=== PATIENT | male | born 1960 | race Caucasian/White ===

== ENCOUNTER 2024-10-08 18:19 | Emergency (ER) | payer OTHER, SELFPAY ==
[2024-10-08 18:20] VITALS: BP 163/96
[2024-10-08 18:52] LABS: Hematocrit 39.5 % (39.0-52.0); Hemoglobin 13.4 g/dL (13.0-18.0); Mean Corp Hgb Conc. 33.9 g/dL (33.0-37.0); Mean Corpuscular Volume 91.2 fL (80.0-94.0); Nucleated Red Blood Cells % 0 % (-); Platelet Count 264 10^3/uL (130-400); Red Cell Dist. Width 12.5 % (11.5-14.5)
--- NOTE | 2024-10-08 19:24 | ED.GENMED ---
History of Present Illness
General
Chief Complaint: Skin Problem
Source: patient
Exam Limitations: none
Time Seen by Provider: 10/08/24 18:25
Nursing documentation reviewed up to this point in time: agreed with
History of Present Illness
History of Present Illness:
64-year-old male presenting to the emergency department today with concerns of right lower extremity swelling discomfort over the past few days. He claims that 2 days ago piece of metal hit him in the staton he thinks there could be an infection
noted some draining from the cut. Did have surgery on his staton due to a fracture 2 months ago. Denies any fevers nausea vomiting or any systemic symptoms. Denies any numbness or weakness.
Review of Systems
Review of Systems
Allergies reviewed?: Yes
All Other Systems: ROS reviewed and negative except as documented in HPI and ROS
Phy Exam
Physical Exam
Physical Exam:
GENERAL: Alert , in no apparent distress
EYE: pupils equal and reactive
NECK: Supple, no significant adenopathy.
ENT: o/p clr, mmm.
CARDIAC: Regular rate and rhythm .
LUNGS: Clear breath sounds bilaterally, no acute respiratory distress, no wheezes/rales/rhonchi
ABDOMEN: Soft, without focal tenderness, no r/g, no cvat
NEUROLOGICAL: Alert and oriented, no focal neuro deficits
SKIN: Small cut to the mid anterior staton roughly 1 cm in length no purulent drainage no fluctuance or induration. Warm and dry, skin intact.
MUSCULOSKELETAL: Vague edema throughout the right lower extremity distal to the right knee. +1 pitting edema. Normal distal pulses dorsalis pedis and posterior tibialis. Good range of motion and strength of the ankle and knee., well perfused.
PSYCH: Normal and appropriate interaction.
Course
Orders/Labs/Results
Orders:
Orders
10/08/24 18:37
Cephalexin Monohydrate [Keflex] 500 mg PO NOW STA
Venous Doppler Lwr Ext Rt [US Perip Venous LOWER Ext RT] Urgent
Comment:
Reason For Exam: right leg swelling, recent surgery
10/08/24 18:47
CBC/With Diff [Complete Blood Count/With Diff] Urgent
CMP [Comprehensive Metabolic Panel] Urgent
Abnormal Lab Results
10/08/24
18:47
RBC 4.33 L 10^6/uL
(4.70-6.10)
Lymphocytes % 19.1 L %
(20.5-51.1)
Chloride 108 H mmol/L
(98-107)
Alkaline Phosphatase 156 H U/L
(38-126)
10/08/24 18:47
10/08/24 18:47
Vital Signs
Initial and Last Documented VS:
Initial Vital Signs
Temp Pulse Resp BP Pulse Ox
97.8 F 97 16 163/96 99
10/08/24 18:20 10/08/24 18:20 10/08/24 18:20 10/08/24 18:20 10/08/24 18:20
Last Documented Vital Signs
Temp Pulse Resp BP Pulse Ox
97.8 F 97 16 163/96 99
10/08/24 18:20 10/08/24 18:20 10/08/24 18:20 10/08/24 18:20 10/08/24 19:27
MDM/Problems Addressed
MDM/Problems Addressed:
64-year-old male presenting to the emergency department today with concerns of right-sided staton swelling discomfort over the past 2 days after a piece of metal hit him in the staton. Was worried that there could be an infection there was some redness
and tenderness to palpation redness was not circumscribed. Considering recent surgery plan for ultrasound to rule out DVT. Labs do not show any significant white count normal vital signs here. Ultrasound negative. Patient was started on
antibiotics for possible cellulitis. Otherwise advised for close outpatient follow-up and return precautions given.
*Pulse Oximetry
SaO2: 99
Oxygen Mode of Delivery: Room air
Patient hypoxic: no (99)
*Critical Care Note
Total Time (30-74mins, 75-104mins- exclusive of procedures): Not Applicable
ED Attending Note
-
Portions of this chart may have been created with voice recognition software.� Occasional wrong word or��sound alike� substitutions may have occurred due to the inherent limitations of voice recognition software.
Discharge Plan
Departure
Patient Disposition: Home (Routine Discharge)
Date of Disposition: 10/08/24
Time of Disposition: 19:55
Patient with high blood pressure during this ER visit?: No
Condition: Good
Covid-19: Not Applicable
Discharge Problem:
Cellulitis
Instructions: Cellulitis (Skin Infection), Adult (DC)
Prescriptions:
New
cephalexin 500 mg capsule
500 mg PO QID 7 Days Qty: 28 0RF
Activity Restrictions/Additional Instructions:
You came to the emergency department today with concerns of swelling to your right leg. This is potentially from a infection to the area. Please take the prescribed antibiotic and follow-up closely with your primary care doctor within 1 week for
reassessment. Return for any progressive or worsening symptoms.
Interventions
Interventions:
*Risk Screen - Suicide Last Done: 10/08/24 18:20
*General Assessment Last Done: 10/08/24 18:20
*Neglect/Abuse Screening Last Done: 10/08/24 18:20
Discharge Date and Time
Print Language: DIVEHI
[2024-10-08 19:34] LABS: ALT (SGPT) 22 U/L (0-50); AST (SGOT) 20 U/L (17-59); Albumin 4.2 g/dl (3.5-5.0); Alkaline Phosphatase 156 U/L (38-126); Blood Urea Nitrogen 20 mg/dl (9-20); Calcium 9.6 mg/dl (8.4-10.2); Carbon Dioxide 26 mmol/L (22-30); Chloride 108 mmol/L (98-107); Glucose 97 mg/dl (70-99); Potassium 4.5 mmol/L (3.5-5.1); Sodium 140 mmol/L (135-145); Total Protein 7.5 g/dl (6.3-8.2); eGFR > 60.00
[2024-10-08] MEDS: KEFLEX 500 MG PO (19:36)
== END 2024-10-08 20:14 | disposition home or self-care (01) ==
LOC: EMR 18:19
PROVIDERS: Physician Assistant; EMERGENCY PHYSICIAN Emergency Medicine
DX: L03.115 Cellulitis of right lower limb (principal)
CPT/HCPCS: 99284; 80053; 85025; 93971